=== PATIENT | female | born 1990 | race Two or more races ===

== ENCOUNTER 2018-07-22 13:24 | Inpatient (IN) | payer OTHER ==
[~2018-07-22] VITALS: Ht 175.3 cm; Wt 110.2 kg
[2018-07-22] MEDS ORDERED: PRENATAL TABLE1 EAC4 PO (13:43)
[2018-07-22] MEDS ORDERED: IRON325 MG PO (13:44)
== END 2018-07-25 11:07 | DRG 788 ==
LOC: LDR 13:24 → OB/GYN 13:24
PROVIDERS: ADMIT Obstetrics & Gynecology
PROC: 4A0HXFZ Measurement of Products of Conception, Cardiac Rhythm, External Approach (ICD-10-PCS; 2018-07-23)
PROC: 10D00Z1 Extraction of Products of Conception, Low, Open Approach (ICD-10-PCS; principal; 2018-07-23 02:30)
DX: O82 Encounter for cesarean delivery without indication (principal); O76 Abnormality in fetal heart rate and rhythm complicating labor and delivery; O69.81X0 Labor and delivery complicated by cord around neck, without compression, not applicable or unspecified; Z3A.39 39 weeks gestation of pregnancy; Z37.0 Single live birth